=== PATIENT | male | born 1995 | race Two or more races ===

== ENCOUNTER 2024-02-06 11:17 | Emergency (ER) | payer OTHER ==
[~2024-02-06] VITALS: Ht 172.7 cm; Wt 75.5 kg
[2024-02-06 13:15] VITALS: BP 130/80; PULSE 88; RESP 88; TEMP 97.3; O2SAT 98
[2024-02-06] MEDS ORDERED: IBUP-1456 PO (13:29)
[2024-02-06] MEDS ORDERED: PRED20TA2 PO (13:29)
[2024-02-06] MEDS ORDERED: PENI500T2 PO (13:29)
[2024-02-06] MEDS: DexAMETHasone SOD PHOS 10MG/1ML VIAL INJ IM ONE (14:08)
[2024-02-06] MEDS: cefTRIAXone SOD 500 MG VL IM ONE (14:09)
[2024-02-06] MEDS: KETOROLAC TROMETH 60MG/2ML VIAL IM ONE (14:10)
== END 2024-02-06 14:26 | disposition home or self-care (01) ==
LOC: ER 11:17
DX: K02.9 Dental caries, unspecified (principal); Z79.899 Other long term (current) drug therapy
CPT/HCPCS: 96372; 99284; J0696; J1100; J1885